=== PATIENT | male | born 1990 ===

== ENCOUNTER 2018-12-07 21:35 | Emergency (ER) | payer OTHER ==
[~2018-12-07] VITALS: Ht 182.9 cm; Wt 80.7 kg
[2019-01-02] MEDS ORDERED: PAPAYA ENZYME1 EACH PO (10:09)
[2019-01-02] MEDS ORDERED: MEN'S MULTIVIT1 EACH PO (10:10)
== END 2018-12-07 22:18 | disposition home or self-care (01) ==
LOC: ER 21:35
DX: F41.0 Panic disorder [episodic paroxysmal anxiety] (principal); R00.0 Tachycardia, unspecified
CPT/HCPCS: 93005; 93010; 99283-25

== ENCOUNTER 2019-01-23 07:26 | Day surgery (SDC) | payer OTHER ==
[~2019-01-23] VITALS: Ht 182.9 cm; Wt 80.8 kg
[~2019-01-23 07:26] MED LIST: MEN'S MULTIVIT1 EACH PO; PAPAYA ENZYME1 EACH PO
== END 2019-01-23 09:40 | disposition home or self-care (01) ==
LOC: ORSCSDS 07:26
PROVIDERS: Internal Medicine Gastroenterology
PROC: 0DB68ZX Excision of Stomach, Via Natural or Artificial Opening Endoscopic, Diagnostic (ICD-10-PCS; principal; 2019-01-23 08:30)
PROC: 0DBE8ZX Excision of Large Intestine, Via Natural or Artificial Opening Endoscopic, Diagnostic (ICD-10-PCS; principal; 2019-01-23 08:30)
PROC: 0DB98ZX Excision of Duodenum, Via Natural or Artificial Opening Endoscopic, Diagnostic (ICD-10-PCS; principal; 2019-01-23 08:30)
DX: R19.7 Diarrhea, unspecified (principal); K29.70 Gastritis, unspecified, without bleeding; K44.9 Diaphragmatic hernia without obstruction or gangrene
CPT/HCPCS: 88305; 88342; J0330; J0461; J2405; J2704; J7120